=== PATIENT | female | born 1950 | race Caucasian/White ===

== ENCOUNTER 2023-04-09 07:19 | Day surgery (SDC) | payer OTHER ==
[~2023-04-09] VITALS: Ht 160 cm; Wt 69.5 kg
[~2023-04-09 07:19] MED LIST: Aspir-Trin325 MG; DAILY MULTIPLE1 EACH; MERIBIN5 MG; NAPR220; PRED10 PO
[2023-04-09] MEDS ORDERED: MERIBIN5 MG (07:45)
[2023-04-09] MEDS ORDERED: THERA-D2000 UNIT (07:46)
[2023-04-09] MEDS ORDERED: CARBLEV25 (07:46)
[2023-04-09] MEDS ORDERED: Naproxen250 MG (07:47)
[2023-04-09] MEDS ORDERED: MIRALAX17 GM (07:47)
[2023-04-09] MEDS ORDERED: B COMPLEX FORM0.4 MG (07:48)
[2023-04-09] MEDS ORDERED: TIZA4 (07:48)
[2023-04-09 10:02] VITALS: BP 150/79
== END 2023-04-09 10:02 | disposition home or self-care (01) ==
LOC: ORSCSDS 07:19
PROVIDERS: Surgery
PROC: 0DJD8ZZ Inspection of Lower Intestinal Tract, Via Natural or Artificial Opening Endoscopic (ICD-10-PCS; principal; 2023-04-09 08:45)
DX: Z12.11 Encounter for screening for malignant neoplasm of colon (principal); Z86.010 Personal history of colon polyps; Z80.0 Family history of malignant neoplasm of digestive organs; K62.1 Rectal polyp; E78.2 Mixed hyperlipidemia; G20 Parkinson's disease; Z87.891 Personal history of nicotine dependence; Z79.899 Other long term (current) drug therapy
CPT/HCPCS: 88305; J2405; J2704; J7120